=== PATIENT | female | born 1965 | race African-American/Black ===

== ENCOUNTER 2017-01-09 02:25 | Emergency (ER) | payer OTHER ==
--- NOTE | ~2017-01-09 | EKG ---
PATIENT: ELISEO BOLANOS UNIT #: [id number] Ventricular Rate: 86 BPM Atrial Rate: 86 BPM P-R Interval: 136 ms QRS Duration: 72 ms Q-T Interval: 400 ms QTC Calculation(Bezet): 478 ms P [place]: 85 degrees Calculated R [place]: 61 degrees Calculated T [place]: 72 degrees Diagnosis Line: Normal sinus rhythm Diagnosis Line: Biatrial enlargement Diagnosis Line: Abnormal ECG Diagnosis Line: No previous ECGs available Diagnosis Line: Confirmed by JAM GAXIOLA MD ([id number]) on 01/11/2017 Diagnosis Line: 10:25:34 AM INTERPRETING MD: KHALIDA MORSE
--- NOTE | ~2017-01-09 | CR72 ---
[facility] A Service of [facility] & [facility] RADIOLOGY TEXT RESULTS PATIENT: ELISEO BOLANOS LOCATION: [facility] : [birth year] UNIT #: [id number] AGE: [address]: Torito Rene MD SEX: F ORDER DR: [id number] [facility] [address] [place], [place] [address] [id number] E MR#: [id number] Acc #: [id number] NAME: ELISEO BOLANOS : 1965 SEX: F STUDY DATE/TIME: 01/09/2017 UNIT: [facility] ROOM: STUDY DESCRIPTION: CR Chest Single View Portable Attending Physician: Torito Rene M.D. Ordering Physician: Torito Rene M.D. Primary Care Physician: Primary Care Physician No MEDICAL IMAGING REPORT This report is preliminary unless electronic signature is present EXAM Portable chest 01/09 04:34 INDICATIONS Cough and left side chest pain that started yesterday. FINDINGS AP portable chest is compared with 02/24/2014. Cardiac and mediastinal contours are normal. The lungs are clear. No pneumothorax is seen. There is emphysema. Bullous change noted in the right apex. IMPRESSION Emphysema with bullous change in the right apex. No acute findings in the chest. Dictated by... Maxx France Jr., M.D. THIS IS AN ELECTRONICALLY VERIFIED REPORT Maxx France Jr., M.D. at 01/10/2017 5:53 AM ESTRADA/jocelyne TD: 01/09/2017 07:37 JOB #: [id number] MEDICAL IMAGING REPORT Page 1 of 1 COPY
== END 2017-01-09 05:35 | disposition home or self-care (01) ==
LOC: CED 02:25
DX: R07.89 Other chest pain (principal); R05 Cough; F17.200 Nicotine dependence, unspecified, uncomplicated; Z88.0 Allergy status to penicillin; Z88.5 Allergy status to narcotic agent
CPT/HCPCS: 71010; 93005; 99284